=== PATIENT | male | born 1960 | race Caucasian/White ===

== ENCOUNTER 2017-03-31 11:33 | Emergency (ER) | payer OTHER ==
[~2017-03-31 11:33] MED LIST: ANDROGEL1.62% TD; LEVSIN/SL0.125 MG SL; METFORMIN HCL1000 M1 PO; METFORMIN1000 MG PO; METHADONE HCL5 MG PO; PERCOCET 325 MG1 TA2 PO; PHENERGAN25 M1 PO; PHENERGAN25 MG PR; PROMETHAZINE25 M1 PO; TRAZODONE150 MG PO; ZOFRAN ODT4 MG PO; ZOFRAN4 M1 SL
--- NOTE | 2017-03-31 11:51 | ED GENERAL ADULT ---
History of Present Illness General Chief Complaint: Fever Stated Complaint: FEVER Source: patient Exam Limitations: no limitations Vital Signs & Intake/Output Vital Signs & Intake/Output Vital Signs Date Time Temp Pulse Resp B/P B/P Pulse O2 O2 Flow FiO2 Mean Ox Delivery Rate 03/31 1332 96.7 64 18 117/74 95 07/05 1220 Room Air 03/31 1138 96.3 94 16 138/54 96 Room Air ED Intake and Output 04/01 0000 03/31 1200 Intake Total 1000 Output Total Balance 1000 Intake, IV 1000 Allergies Coded Allergies: NO KNOWN ALLERGIES (08/19/15) Reconcile Medications METFORMIN HCL (Metformin) 1,000 MG TAB 1 TAB PO BID DM Methadone HCl 5 MG TABLET 55 MG PO DAILY HEROIN ABUSE (Reported) Moxifloxacin HCl (Avelox) 400 MG TABLET 1 TAB PO DAILY pneumonia TRAZODONE HCL (Trazodone HCl) 150 MG TABLET 1 TAB PO QPM DEPRESSION (Reported ) Triage Note: PT TO ED WITH ?FEVER, STATES HAD A FEVER OVER THE WEEKEND. TEMP IN TRIAGE 96.3, STATES HE IS ON AMOXICILLIN - STATES THEY DID NOT DIAGNOSE HIM WITH ANYTHING. STATES HE STILL DOESNT FEEL ANY BETTER. Triage Nurses Notes Reviewed? yes Onset: Abrupt Duration: day(s): Timing: recent history HPI: this is again came and 03/31/17 12:07 PM 56-year-old man presents to the emergency department complaining of dehydration, weakness, malaise, subjective fever. He also admits to a cough. He says he has a past medical history of [id number] diabetes. He said he was in his usual state of health until approximately 1 week ago, when he developed the above symptom complex. He denies any abdominal pain or chest pain or headache. He does admit to occasional nonproductive cough. He was seen in a walk-in center. No blood work was done. He was put on amoxicillin. Past History Travel History Traveled to [place] past 21 day No Medical History Any Pertinent Medical History? see below for history Neurological: NONE EENT: NONE Cardiovascular: NONE Respiratory: NONE Gastrointestinal: NONE Hepatic: NONE Renal: NONE Musculoskeletal: NONE Psychiatric: HEROIN ABUSE Endocrine: diabetes Blood Disorders: NONE Cancer(s): NONE [employer]/Reproductive: NONE Surgical History Surgical History: cholecystectomy Psychosocial History What is your primary language Ivorian Tobacco Use: Never used Family History Hx Contributory? No Review of Systems Review of Systems Constitutional: Reports: see HPI, malaise, weakness. EENTM: Reports: no symptoms. Respiratory: Denies: short of breath. Cardiovascular: Denies: chest pain. GI: Denies: abdominal pain. Genitourinary: Reports: no symptoms. Musculoskeletal: Reports: see HPI. Skin: Denies: rash. Neurological/Psychological: Reports: headache. Hematologic/Endocrine: Denies: bruising, bleeding. Immunologic/Allergic: Reports: no symptoms. Physical Exam Physical Exam General Appearance: well developed/nourished, alert, awake, anxious Head: atraumatic, normal appearance Eyes: Bilateral: normal appearance, PERRL, EOMI. Ears, Nose, Throat: normal pharynx, normal ENT inspection Neck: normal inspection, supple, full range of motion Respiratory: normal breath sounds (LEFT BASE ), chest non-tender, crackles Cardiovascular: regular rate/rhythm, no murmur Peripheral Pulses: 4+ radial (R), 4+ radial (L) Gastrointestinal: non-tender Back: normal inspection, normal range of motion Extremities: normal inspection, normal range of motion Neurologic/Psych: no motor/sensory deficits, awake, alert, oriented x 3 Skin: intact, normal color, diaphoresis Core Measures ACS in differential dx? No CVA/TIA Diagnosis: No Severe Sepsis Present: No Septic Shock Present: No Progress Differential Diagnoses I considered the following diagnoses in my evaluation of the patient: [Pneumonia , tick borne illness, diabetic ketoacidosis, sepsis] Plan of Care: Orders Procedure Date/time Status TROPONIN LEVEL 03/31 1210 Complete EKG 03/31 1200 Active URINALYSIS 03/31 115 Complete LYME TITRE 03/31 1156 Active COMPREHENSIVE METABOLIC PANEL 03/31 1156 Complete CBC WITHOUT DIFFERENTIAL 03/31 115 Complete Laboratory Tests 03/31/17 1310: Urinalysis LIGHT H, Urine Color YEL, Urine Clarity HAZY H, Urine pH 6.0, Ur Specific [place] 1.020, Urine Protein 30 H, Urine Ketones NEG, Urine Nitrite NEG, Urine Bilirubin NEG, Urine Urobilinogen 0.2, Ur Leukocyte Esterase NEG, Ur Microscopic SEDIMENT EXAMINED, Urine RBC RARE, Urine WBC RARE, Ur Epithelial Cells FEW, Urine Bacteria FEW H, Hyaline Casts 3-5 H, Granular Casts RARE H, Urine Hemoglobin TRACE-LYSED H, Urine Glucose >=1000 H 03/31/17 1210: Anion Gap 11, Estimated GFR > 60, BUN/Creatinine Ratio 20.0, Glucose 287 H, Calcium 8.8, Total Bilirubin 0.6, AST 56, ALT 59, Alkaline Phosphatase 107, Troponin I < 0.01, Total Protein 6.2 L, Albumin 3.4 L, Globulin 2.8, Albumin/ Globulin Ratio 1.2, CBC w Diff NO MAN DIFF REQ, RBC 3.79 L, MCV 86.3, MCH 30.3, RDW 13.8, MPV 7.8, Gran % 61.9, Lymphocytes % 25.0, Monocytes % 7.0, Eosinophils % 5.6 H, Basophils % 0.5, Absolute Granulocytes 4.9, Absolute Lymphocytes 2.0, Absolute Monocytes 0.5, Absolute Eosinophils 0.4, Absolute Basophils 0, PUBS MCHC 35.0, Lyme Disease Antibody Pending 03/31/17 1200: Troponin I Cancelled Initial ED EKG: NSR Departure Departure Disposition: STILL A PATIENT Condition: Stable Clinical Impression Primary Impression: Pneumonia Secondary Impressions: Weakness Referrals: DANA AMBROCIO,COOKIE Fernandez (PCP/Family) Departure Forms: Customer Survey General Discharge Information Prescriptions: Current Visit Scripts Moxifloxacin HCl (Avelox) 1 TAB PO DAILY #10 TAB Comments Chest x-ray shows left lower lobe infiltrate. His pneumonia severity index is class II. He has less than a 1% mortality rate. I will switch him to Avelox. He will follow-up with his doctor in the next 7 days. He was instructed to please stop smoking. Critical Care Note Critical Care Note Critical Care Time: non-applicable
[2017-03-31 12:27] LABS: ABSOLUTE BASOPHIL COUNT 0 /CUMM (0.0-0.2); ABSOLUTE EOSINOPHIL COUNT 0.4 /CUMM (0.0-0.7); ABSOLUTE GRANULOCYTE CT 4.9 /CUMM (1.4-6.5); ABSOLUTE MONOCYTE COUNT 0.5 /CUMM (0.10-0.60); BASOPHIL % 0.5 % (0.0-2.0); EOSINOPHIL % 5.6 % (0-5); GRANULOCYTE % 61.9 % (42.2-75.2); HEMATOCRIT 32.7 % (42-52); MEAN CORPUSCULAR HGB 30.3 PG (27.0-31.0); MEAN CORPUSCULAR VOLUME 86.3 FL (80.0-94.0); MEAN PLATELET VOLUME 7.8 FL (7.4-10.4); PLATELET COUNT 205 /CUMM (130-400); RBC DISTRIBUTION WIDTH 13.8 % (11.5-14.5); RED BLOOD CELL CT 3.79 /CUMM (4.70-6.10); WHITE BLOOD CELL COUNT 7.8 /CUMM (4.8-10.8)
[2017-03-31 13:32] VITALS: BP 117/74
--- NOTE | 2017-03-31 13:59 | RADIOLOGY REPORT ---
EXAMINATION: XR CHEST CLINICAL INFORMATION: Cough and fever COMPARISON: Chest x-ray most recent prior dated 04/06/2014 TECHNIQUE: 2 views of the chest were obtained. FINDINGS: Cardiomediastinal silhouette is within normal limits. Patchy infiltrate present in the left lower lobe consistent with pneumonia. No evidence of pleural effusion. Unremarkable right lung. IMPRESSION: Left lower lobe pneumonia. Follow-up chest x-ray after treatment recommended.
[2017-03-31] MEDS ORDERED: AVELOX400 M1 PO (15:04)
== END 2017-03-31 15:10 ==
LOC: ERH 11:33
PROVIDERS: Emergency Medicine
DX: J18.9 Pneumonia, unspecified organism (principal); R53.1 Weakness; E86.0 Dehydration; R50.9 Fever, unspecified; R05 Cough; F11.10 Opioid abuse, uncomplicated
CPT/HCPCS: 86618; 81001; 93005; 93010; 96360